=== PATIENT | female | born 1925 | race Caucasian/White ===

== ENCOUNTER 2016-12-14 20:46 | Inpatient (IN) | payer MEDICARE ==
[~2016-12-14] VITALS: Ht 165.1 cm; Wt 109.3 kg
[2016-12-14 21:30] VITALS: BP 163/75
[2016-12-14] MEDS ORDERED: MAG HYDROX/AL HYDROX/SIMETH 30 ML UDC PO PRN (22:00)
[2016-12-14] MEDS ORDERED: ACETAMINOPHEN 325 MG TABLET PO PRN (22:00)
[2016-12-14] MEDS ORDERED: MAGNESIUM HYDROXIDE 30 ML UDC PO PRN (22:00)
[2016-12-14] MEDS ORDERED: TEMAZEPAM 7.5 MG CAPSULE PO PRN (22:00)
[2016-12-14] MEDS ORDERED: clonazePAM 0.5 MG TABLET PO PRN (22:00)
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
[2016-12-15] MEDS ORDERED: Z GUARD REMEDY 2 OZ OINT TP PRN (04:00)
[2016-12-15 08:00] VITALS: BP 127/67
[2016-12-15 08:02] LABS: BASOPHILS % (AUTO) 0.4 % (0.0-2.0); EOSINOPHILS # (AUTO) 0.2 /CMM (0.0-0.7); EOSINOPHILS % (AUTO) 2.5 % (0.0-6.0); HEMATOCRIT 40 % (33-45); HEMOGLOBIN 13.3 g/dL (11.5-14.8); LYMPHOCYTES # (AUTO) 1.7 /CMM (0.8-4.8); MEAN CORPUSCULAR HEMOGLOBIN 33 PG (26.0-33.0); MEAN CORPUSCULAR HGB CONC 34 g/dl (31.0-36.0); MEAN CORPUSCULAR VOLUME 97 fL (82-100); MONOCYTES # (AUTO) 0.5 /CMM (0.1-1.30); MONOCYTES % (AUTO) 6.9 % (2.0-12.0); NEUTROPHILS # (AUTO) 4.3 /CMM (1.8-8.9); NEUTROPHILS % (AUTO) 65.2 % (43.0-81.0); PLATELET COUNT (AUTO) 220 /CMM (150-450); RED BLOOD CELL COUNT(AUTO) 4.09 MIL/uL (4.0-5.2); WHITE BLOOD COUNT (AUTO) 6.6 K/uL (4.3-11.0)
[2016-12-15 08:30] LABS: ALANINE AMINOTRANSFERASE 25 U/L (12-78); ALBUMIN 3.3 g/dL (3.4-5.0); ALKALINE PHOSPHATASE 104 U/L (46-116); ASPARTATE AMINOTRANSFERASE 31 U/L (15-37); BILIRUBIN,TOTAL 0.7 mg/dL (0.2-1.0); CALCIUM, SERUM 9.6 mg/dL (8.5-10.1); CARBON DIOXIDE 31 mmol/L (21-32); CHLORIDE 104 mmol/L (98-107); GLUCOSE 121 mg/dL (74-106); SODIUM SERUM 139 mmol/L (136-145); TOTAL PROTEIN, SERUM 8.1 g/dL (6.4-8.2); UREA NITROGEN, BLOOD 15 mg/dL (7-18)
[2016-12-15 08:33] LABS: CHOLESTEROL 169 mg/dL (<200); HDL CHOLESTEROL 65 mg/dL (40-60); LDL 78 mg/dL (0-99); TRIGLYCERIDES 104 mg/dL (30-150)
[2016-12-15] MEDS ORDERED: IBUP-1481 PO (09:05)
[2016-12-15] MEDS ORDERED: LEVO200T8 PO (09:05)
[2016-12-15] MEDS: QUETIAPINE FUMARATE 25 MG TABLET PO SCH ×2 (15:10→17:01)
--- NOTE | 2016-12-15 15:48 | NUR ---
Initial discharge plan: Pt. resides alone at [address] [place] [address] wlx wants to return. Per hold, pt is not able to return home as she is unable to take care of herself and she leave the house due to hearing voices. SW left a voicemail for pt's son, Oli De La Rosa [phone] and will follow up. NACHO will follow up with MD and will help form safe and proper discharge. Pt. may need placement.
[2016-12-15 16:00] VITALS: BP 142/76
[2016-12-15 20:00] VITALS: BP 152/73
[2016-12-15] MEDS: MIRTAZAPINE 15 MG TABLET PO SCH (22:00)
--- NOTE | 2016-12-15 22:58 | NUR ---
PATIENT REFUSED REMERON, EXPLAINED THE RISK AND BENEFITS, ATTEMPTED X 3, PATIENT STILL REFUSED
[2016-12-16 08:00] VITALS: BP 146/74
[2016-12-16] MEDS: QUETIAPINE FUMARATE 25 MG TABLET PO SCH ×2 (08:22→16:33)
[2016-12-16 15:58] VITALS: BP 114/59
--- NOTE | 2016-12-16 19:30 | NUR ---
GPS RN NOTE, RECEIVED PATIENT AWAKE AND IN BED, NO S/S OR COMPLAINTS OF PAIN AT THIS TIME. PATIENT IS DISPLAYING NO S/S OF APPARENT DISTRESS AT THIS TIME. PATIENT BREATHING IS UNLABORED WITH EQUAL RISE AND FALL OF THE CHEST. PATIENT IS TURKISH SPEAKING ONLY. PATIENT IS ALERT AND ORIENTED X 2 ON ROOM AIR WITH A SPO2 96%. PATIENT SELECTIVE WITH MEDICATION, ANXIOUS, COOPERATIVE, CONFUSED AT TIMES, AND NEEDS REORIENTATION. PATIENT DENIES SUICIDE AND HOMICIDAL IDEATIONS AT THIS TIME. PATIENT ASSISTED WITH TURNING AND REPOSITIONING Q2HR AND PRN FOR COMFORT AND CIRCULATION. PATIENT HAS NO NEEDS AT THIS TIME. PATIENT EDUCATED ON THE USE OF THE CALL LOWRY. PATIENT BED SIDE RAILS UP X2 FOR SAFETY, BED IS LOCKED AND LOW WILL CONTINUE TO MONITOR AND MAINTAIN SAFETY.
[2016-12-16] MEDS ORDERED: LOSA1TAB35 PO (19:47)
[2016-12-16 20:00] VITALS: BP 132/74
[2016-12-16] MEDS: MIRTAZAPINE 15 MG TABLET PO SCH (21:36)
--- NOTE | 2016-12-16 21:36 | NUR ---
GPS RN NOTE, PATIENT REFUSED TO TAKE REMERON 7.5MG PO HS. OFFERED MEDICATION THREE TIMES BUT STILL PATIENT REFUSED STATING, I DON'T NEED THAT MEDICATION THANK YOU ". EDUCATED THE PATIENT ON THE RISKS AND BENEFITS OF TAKING AND REFUSING AFOREMENTIONED MEDICATION. WILL CONTINUE TO MONITOR THIS PATIENT.
--- NOTE | 2016-12-16 22:00 | NUR ---
GPS RN NOTE, PATIENT NEEDS A MEDICATION RECONCILIATION. PAGED [facility] AND INFORMED DR FREEDOM GAMA OF MY FINDINGS. DR GAMA ORDERED TO CONTINUE LEVOTHYROXINE SODIUM 200MCG 1 TAB PO ACB, TO CONTINUE LOSARTAN 1 TAB PO QD, AND DISCONTINUE IBUPROFEN 400MG PO TID PRN. ALL ORDERS NOTED AND CARRIED OUT. HOME MEDICATION LIST FAXED TO PHARMACY TO BE CONTINUED. WILL CONTINUE TO MONITOR THIS PATIENT.
[2016-12-17 08:17] VITALS: BP 139/99
[2016-12-17] MEDS: QUETIAPINE FUMARATE 25 MG TABLET PO SCH ×4 (09:03→17:06)
[2016-12-17] MEDS: LOSARTAN POTASSIUM 50 MG TABLET PO SCH ×2 (11:00→12:09)
--- NOTE | 2016-12-17 13:46 | NUR ---
PATIENT IN THE DINING ROOM, A/O X2/3, GABONESE SPEAKER, SON NEXT TO THE PATIENT. PATIENT REFUSED 1100, AND 1300 MEDICATION, OFFERED X3 STILL REFUSED. CONTINUED MONITORING.
[2016-12-17 15:50] VITALS: BP 148/63
[2016-12-17 19:31] VITALS: BP 139/76
[2016-12-17] MEDS: MIRTAZAPINE 15 MG TABLET PO SCH (21:23)
[2016-12-18] MEDS: LEVOTHYROXINE SODIUM 100 MCG TABLET PO SCH (07:36)
[2016-12-18] MEDS: HYDROCHLOROTHIAZIDE 25 MG TABLET PO SCH ×2 (07:39→09:00)
[2016-12-18] MEDS: QUETIAPINE FUMARATE 25 MG TABLET PO SCH ×3 (07:39→17:00)
[2016-12-18] MEDS: LOSARTAN POTASSIUM 50 MG TABLET PO SCH ×2 (07:39→09:00)
[2016-12-18 08:00] VITALS: BP 160/78
--- NOTE | 2016-12-18 10:22 | NUR ---
SW left a voicemail for pt's son, Oli De La Rosa [phone] to find out whether pt. is able to return home or needs placement. will follow up
[2016-12-18 16:00] VITALS: BP 135/60
[2016-12-18 19:40] VITALS: BP 180/74
[2016-12-18 20:15] VITALS: BP 153/66
[2016-12-18] MEDS: MIRTAZAPINE 15 MG TABLET PO SCH (22:00)
[2016-12-19] MEDS: LEVOTHYROXINE SODIUM 100 MCG TABLET PO SCH (07:51)
[2016-12-19 08:00] VITALS: BP 151/81
[2016-12-19] MEDS: QUETIAPINE FUMARATE 25 MG TABLET PO SCH ×4 (09:00→16:48)
[2016-12-19] MEDS: LOSARTAN POTASSIUM 50 MG TABLET PO SCH (09:36)
[2016-12-19] MEDS: HYDROCHLOROTHIAZIDE 25 MG TABLET PO SCH (09:37)
[2016-12-19] MEDS ORDERED: DEXTROSE 50%-WATER 50 ML DISP.SYRIN IV PRN (11:30)
[2016-12-19] MEDS ORDERED: INSULIN REGULAR, HUMAN 100 UNIT/ML 3 ML VIAL SQ PRN (11:30)
[2016-12-19] MEDS: BLOOD SUGAR DIAGNOSTIC 1 EACH STRIP IN SCH ×3 (11:43→22:00)
[2016-12-19 16:00] VITALS: BP 166/64
--- NOTE | 2016-12-19 16:49 | NUR ---
PATIENT REFUSED 0900, 1300, AND 1700 SEROQUEL 25 MG PO SCHEDULED. OFFERED MEDICATION X3 EXPLAINED BENEFIT OF TAKING MEDICATION BUT STILL REFUSED. DR FOWLER NOTIFIED. CONTINUED MONITORING.
[2016-12-19 20:55] VITALS: BP 140/57
[2016-12-19] MEDS: MIRTAZAPINE 15 MG TABLET PO SCH (22:00)
--- NOTE | 2016-12-19 22:00 | NUR ---
GPS RN NOTES: PATIENT REFUSED TO HAVE ACCUCHECK DONE. PATIENT WILL RESPOND "NO! POLICIA" IN A LOUD MANNER. EXPLAINED TO PATIENT THE RISKS AND BENEFITS OF MEDICATION COMPLIANCE. WILL ENDORSE TO DAY SHIFT NURSE.
--- NOTE | 2016-12-20 | NUR ---
GPS RN: PATIENT IN THE CHAIR, HOLDING PAPERS ON HER HAND. OBSERVED TO BE IN SLEEPY MODE. ENCOURAGED PATIENT TO BE IN THE BED. FOR COMFORT AND SAFETY, PATIENT REFUSED. STATES SHE IS OKAY. WILL ENDORSE TO DAY SHIFT NURSE.
[2016-12-20] MEDS: LEVOTHYROXINE SODIUM 100 MCG TABLET PO SCH (07:30)
[2016-12-20 08:00] VITALS: BP 136/70
[2016-12-20] MEDS: BLOOD SUGAR DIAGNOSTIC 1 EACH STRIP IN SCH ×4 (08:14→21:18)
[2016-12-20] MEDS: LOSARTAN POTASSIUM 50 MG TABLET PO SCH (09:00)
[2016-12-20] MEDS: QUETIAPINE FUMARATE 25 MG TABLET PO SCH ×3 (09:00→17:00)
[2016-12-20] MEDS: HYDROCHLOROTHIAZIDE 25 MG TABLET PO SCH (09:00)
--- NOTE | 2016-12-20 10:32 | NUR ---
NACHO spoke with pt's son, Oli De La Rosa [phone] and he confirms that pt. is able to return home and live alone as she has caregivers during the day that help her. He requested to speak with the psychiatrist and social services coordinator relayed the message to Dr. Barillas
[2016-12-20 16:00] VITALS: BP 148/66
--- NOTE | 2016-12-20 17:30 | NUR ---
GPS/RN PATIENT REFUSED ACCUCHECK X3, EXPLAINED RISKS AND BENEFITS BUT CONTINUES TO REFUSE, WILL CONTINUE TO ENCOURAGE TO COMPLY WITH MD REGIMEN AND TREATMENTS.
--- NOTE | 2016-12-20 18:42 | NUR ---
GPS/RN PATIENT ADAMANTLY REFUSED ALL MEDICATION DURING SHIFT,EXPLAINED RISKS AND BENEFITS, DR BILL GR FILED.
[2016-12-20 20:10] VITALS: BP 149/81
[2016-12-20] MEDS: MIRTAZAPINE 15 MG TABLET PO SCH (21:18)
[2016-12-21] MEDS: LEVOTHYROXINE SODIUM 100 MCG TABLET PO SCH (07:30)
[2016-12-21] MEDS: BLOOD SUGAR DIAGNOSTIC 1 EACH STRIP IN SCH ×4 (08:26→21:07)
[2016-12-21 08:34] VITALS: BP 164/80
[2016-12-21] MEDS: QUETIAPINE FUMARATE 25 MG TABLET PO SCH ×3 (09:00→16:39)
[2016-12-21] MEDS: HYDROCHLOROTHIAZIDE 25 MG TABLET PO SCH (09:00)
[2016-12-21] MEDS: LOSARTAN POTASSIUM 50 MG TABLET PO SCH (09:00)
--- NOTE | 2016-12-21 13:00 | NUR ---
GPS/RN PATIENT REFUSED ACCUCHECK X3, EXPLAINED RISKS AND BENEFITS BUT CONTINUES TO REFUSE, WILL CONTINUE TO ENCOURAGE TO COMPLY WITH MD REGIMEN AND TREATMENTS.
[2016-12-21 16:39] VITALS: BP 139/75
--- NOTE | 2016-12-21 16:48 | NUR ---
GPS/RN PATIENT ADAMANTLY REFUSED ALL MEDICATION DURING SHIFT,EXPLAINED RISKS AND BENEFITS BUT CONTINUES TO REFUSE, WILL CONTINUE TO ENCOURAGE TO COMPLY WITH MD REGIMEN.
--- NOTE | 2016-12-21 17:00 | NUR ---
Assumed care, pt. was in her room, quiet, no sign of distress and no agitation noted. Will continue to monitor for safety.
--- NOTE | 2016-12-21 19:30 | NUR ---
GPS RN NOTE, RECEIVED PATIENT AWAKE AND IN BED, NO S/S OR COMPLAINTS OF PAIN AT THIS TIME. PATIENT IS DISPLAYING NO S/S OF APPARENT DISTRESS AT THIS TIME. PATIENT BREATHING IS UNLABORED WITH EQUAL RISE AND FALL OF THE CHEST. PATIENT IS SERBIAN SPEAKING ONLY. PATIENT IS ALERT AND ORIENTED X 2 ON ROOM AIR WITH A SPO2 95%. PATIENT SELECTIVE WITH MEDICATION, ANXIOUS, COOPERATIVE, CONFUSED AT TIMES, AND NEEDS REORIENTATION. PATIENT DENIES SUICIDE AND HOMICIDAL IDEATIONS AT THIS TIME. PATIENT ASSISTED WITH TURNING AND REPOSITIONING Q2HR AND PRN FOR COMFORT AND CIRCULATION. PATIENT HAS NO NEEDS AT THIS TIME. PATIENT EDUCATED ON THE USE OF THE CALL LOWRY. PATIENT BED SIDE RAILS UP X2 FOR SAFETY, BED IS LOCKED AND LOW WILL CONTINUE TO MONITOR AND MAINTAIN SAFETY.
[2016-12-21 20:00] VITALS: BP 141/77
--- NOTE | 2016-12-21 21:00 | NUR ---
GPS RN NOTE, PERFORMED ACCU CHECK WITH A BLOOD SUGAR RESULT OF 207. BUT PATIENT REFUSED INSULIN COVERAGE STATING, " I DON'T NEED INSULIN I'M GOOD WITH OUT IT". EDUCATED THE PATIENT ON THE RISKS AND BENEFITS OF TAKING AND REFUSING INSULIN. WILL CONTINUE TO MONITOR THIS PATIENT.
[2016-12-21] MEDS: MIRTAZAPINE 15 MG TABLET PO SCH (21:09)
--- NOTE | 2016-12-21 21:09 | NUR ---
GPS RN NOTE, PATIENT REFUSED TO TAKE REMERON 7.5MG PO HS. OFFERED MEDICATION THREE TIMES BUT STILL PATIENT REFUSED STATING, I DON'T NEED THAT MEDICATION NOW LEAVE ME ALONE". EDUCATED THE PATIENT ON THE RISKS AND BENEFITS OF TAKING AND REFUSING AFOREMENTIONED MEDICATION. WILL CONTINUE TO MONITOR THIS PATIENT.
[2016-12-22] MEDS: LEVOTHYROXINE SODIUM 100 MCG TABLET PO SCH (07:30)
[2016-12-22] MEDS: BLOOD SUGAR DIAGNOSTIC 1 EACH STRIP IN SCH ×4 (07:43→22:05)
[2016-12-22 08:00] VITALS: BP 159/75
[2016-12-22] MEDS: HYDROCHLOROTHIAZIDE 25 MG TABLET PO SCH (09:00)
[2016-12-22] MEDS: QUETIAPINE FUMARATE 25 MG TABLET PO SCH ×3 (09:00→17:18)
[2016-12-22] MEDS: LOSARTAN POTASSIUM 50 MG TABLET PO SCH (09:00)
--- NOTE | 2016-12-22 09:16 | NUR ---
PT. REFUSED TO TAKE PO DUE MEDS, OFFERED 3X, EXPLAINED ON THE IMPORTANCE AND THE RISK OF NOT TAKING THE MEDS AND STILL REFUSING AND SAID "NO QUIERO PASTELLYUKO".
--- NOTE | 2016-12-22 13:34 | NUR ---
PT. REFUSED TO TAKE DUE MED, EXPLAINED ON THE IMPORTANCE AND STILL REFUSING AND SAID "NO". WILL CONTINUE TO MONITOR.
[2016-12-22 16:00] VITALS: BP 131/64
[2016-12-22] MEDS: HALOPERIDOL LACTATE INJ 5 MG/ML VIAL IM SCH (17:00)
--- NOTE | 2016-12-22 17:22 | NUR ---
HALDOL IM NOT GIVEN, PT. TOOK THE SEROQUEL PO.
[2016-12-22 20:00] VITALS: BP 139/65
[2016-12-22] MEDS: MIRTAZAPINE 15 MG TABLET PO SCH (21:43)
[2016-12-23] MEDS: LEVOTHYROXINE SODIUM 100 MCG TABLET PO SCH ×2 (07:30→07:46)
[2016-12-23] MEDS: BLOOD SUGAR DIAGNOSTIC 1 EACH STRIP IN SCH ×4 (07:44→21:25)
[2016-12-23 08:00] VITALS: BP 135/78
[2016-12-23] MEDS: LOSARTAN POTASSIUM 50 MG TABLET PO SCH ×2 (09:00→09:07)
[2016-12-23] MEDS: QUETIAPINE FUMARATE 25 MG TABLET PO SCH ×4 (09:00→17:12)
[2016-12-23] MEDS: HALOPERIDOL LACTATE INJ 5 MG/ML VIAL IM SCH ×4 (09:00→17:00)
[2016-12-23] MEDS: HYDROCHLOROTHIAZIDE 25 MG TABLET PO SCH ×2 (09:00→09:06)
[2016-12-23 16:00] VITALS: BP 137/71
[2016-12-23 20:00] VITALS: BP 135/78
[2016-12-23] MEDS: MIRTAZAPINE 15 MG TABLET PO SCH (21:01)
--- NOTE | 2016-12-23 21:29 | NUR ---
GPS/RN NOTE: ACCUCHECK 158 MG/DL, 2 UNITS REG INSULIN SC ADMINISTERED WITH HS SNACKS.
[2016-12-24] MEDS: LEVOTHYROXINE SODIUM 100 MCG TABLET PO SCH (07:30)
[2016-12-24 08:32] VITALS: BP 173/71
[2016-12-24] MEDS: QUETIAPINE FUMARATE 25 MG TABLET PO SCH ×3 (08:57→16:57)
[2016-12-24] MEDS: HALOPERIDOL LACTATE INJ 5 MG/ML VIAL IM SCH ×3 (08:58→17:00)
[2016-12-24] MEDS: BLOOD SUGAR DIAGNOSTIC 1 EACH STRIP IN SCH ×4 (08:58→21:29)
[2016-12-24] MEDS: HYDROCHLOROTHIAZIDE 25 MG TABLET PO SCH (09:00)
[2016-12-24] MEDS: LOSARTAN POTASSIUM 50 MG TABLET PO SCH (09:00)
[2016-12-24 11:18] VITALS: BP 125/60
--- NOTE | 2016-12-24 12:19 | NUR ---
patient refused 0900, 1200 medication administered haldol im per refusal po medication. also refused coverage on insulin bs-164 mg/dl. md aware of, continued monitoring.
[2016-12-24 16:00] VITALS: BP 134/73
--- NOTE | 2016-12-24 17:30 | NUR ---
PATIENT TOOK SEROQUEK 25 MG PO PRESCRIBED, NO INJECTION GIVEN, CONTINUED MONITORING.
[2016-12-24 20:02] VITALS: BP 119/51
--- NOTE | 2016-12-24 20:27 | NUR ---
GPS/RN NOTE: LYING ON HER LEFT SIDE, SLEEPY, STABLE. NO APPARENT DISTRESS NOTED.
[2016-12-24] MEDS: MIRTAZAPINE 15 MG TABLET PO SCH (21:16)
--- NOTE | 2016-12-24 21:29 | NUR ---
GPS/RN NOTE: ACCUCHECK 132 MG/DL, NO INSULIN SLING SCALE DUE AT THIS TIME, OFFERED HS SNACKS.
[2016-12-25] MEDS: LEVOTHYROXINE SODIUM 100 MCG TABLET PO SCH ×2 (07:30→08:33)
[2016-12-25] MEDS: BLOOD SUGAR DIAGNOSTIC 1 EACH STRIP IN SCH ×4 (07:30→22:00)
--- NOTE | 2016-12-25 07:30 | NUR ---
GPS/RN PATIENT REFUSED ACCUCHECK X 3, EXPLAINED RISKS AND BENEFITS, WILL CONTINUE TO ENCOURAGE TO COMPLY WITH MD REGIMEN.
[2016-12-25 08:00] VITALS: BP 154/74
[2016-12-25] MEDS: LOSARTAN POTASSIUM 50 MG TABLET PO SCH ×2 (08:33→08:47)
[2016-12-25] MEDS: HYDROCHLOROTHIAZIDE 25 MG TABLET PO SCH (08:34)
[2016-12-25] MEDS: QUETIAPINE FUMARATE 25 MG TABLET PO SCH ×3 (08:34→16:21)
[2016-12-25] MEDS: HALOPERIDOL LACTATE INJ 5 MG/ML VIAL IM SCH ×3 (08:49→16:35)
[2016-12-25 16:00] VITALS: BP 145/56
--- NOTE | 2016-12-25 16:36 | NUR ---
GPS/RN ADMINISTERED SEROQUEL 25 MG ORDERED TID DURING SHIFT, HALDOL IM NOT GIVEN BECAUSE PATIENT AGREED TO TAKE MEDICATION PRESCRIBED.
--- NOTE | 2016-12-25 16:55 | NUR ---
GPS/RN PATIENT REFUSED ACCUCHECK X 3, EXPLAINED RISKS AND BENEFITS, WILL CONTINUE TO ENCOURAGE TO COMPLY WITH MD REGIMEN.
[2016-12-25 19:44] VITALS: BP 157/67
[2016-12-25] MEDS: MIRTAZAPINE 15 MG TABLET PO SCH (21:44)
[2016-12-25 22:00] VITALS: BP 130/69
--- NOTE | 2016-12-25 22:02 | NUR ---
GPS/RN AT 2200 PATIENT REFUSED ACCU CHECK X 3, EXPLAINED RISKS AND BENEFITS, WILL CONTINUE TO ENCOURAGE TO COMPLY WITH MD REGIMEN.
--- NOTE | 2016-12-26 06:12 | NUR ---
GPS RN NOTES SHOWER OFFERED IN DURING SHIFT , AND PT. REFUSED TO TAKE SHOWER , PT STATED I AM FEELING COLD , I WILL TAKE SHOWER IN DAY TIME , ENDORSE TO NEXT SHIFT FOR CONTINUITY OF CARE .
--- NOTE | 2016-12-26 06:28 | NUR ---
RN GPS NOTE PT .REMAINED IN STABLE CONDITION RESTING IN HER BED ,NO ACUTE DISTRESS NOTED ATTENDED ALL NEEDS AND ANTICIPATED ,WILL ENDORSE TO NEXT SHIFT FOR CONTINUITY OF CARE
[2016-12-26] MEDS: LEVOTHYROXINE SODIUM 100 MCG TABLET PO SCH (07:30)
[2016-12-26 08:00] VITALS: BP 132/67
[2016-12-26] MEDS: QUETIAPINE FUMARATE 25 MG TABLET PO SCH ×3 (08:12→16:25)
[2016-12-26] MEDS: LOSARTAN POTASSIUM 50 MG TABLET PO SCH (08:12)
[2016-12-26] MEDS: HYDROCHLOROTHIAZIDE 25 MG TABLET PO SCH (08:13)
[2016-12-26] MEDS: BLOOD SUGAR DIAGNOSTIC 1 EACH STRIP IN SCH ×2 (08:43→12:00)
[2016-12-26] MEDS: HALOPERIDOL LACTATE INJ 5 MG/ML VIAL IM SCH ×3 (09:00→16:33)
--- NOTE | 2016-12-26 12:00 | NUR ---
GPS/RN PATIENT REFUSED ACCU CHECK X 3, EXPLAINED RISKS AND BENEFITS, WILL CONTINUE TO ENCOURAGE TO COMPLY WITH MD REGIMEN
--- NOTE | 2016-12-26 14:05 | NUR ---
Discharge note: Pt. will discharge back home to [address] [place] [id number] with caregivers. Pt's son, Oli De La Rosa [phone] was notified and agreed with the discharge plan and agreed to sisal picker the patient after 4:00PM. Pt. is calm and cooperative, agrees with the discharge plan ,and is alert and oriented. Pt. denies suicidal/homicidal ideations. Pt. will follow up with her office messenger Dr. Sathish Tinajero and was referred to [facility] a [facility]. Pt. was also referred to [facility] [phone]. Discharge paperwork has been signed and discharge instructions will be provided to the son when picking up the patient.
[2016-12-26 16:00] VITALS: BP 125/59
--- NOTE | 2016-12-26 17:15 | NUR ---
GPS/RN ADMINISTERED SEROQUEL 25 MG ORDERED TID DURING SHIFT, HALDOL IM NOT GIVEN BECAUSE PATIENT AGREED TO TAKE MEDICATION PRESCRIBED
--- NOTE | 2016-12-26 17:20 | NUR ---
GPS/RN PATIENT CLEARED FOR DISCHARGE HOME BY DR KHAN AND DR PIPER. PRESCRIPTIONS INCLUDED WITH D/C PACKET, AND EXPLAINED TO PATIENT AND SON, VERBALIZED UNDERSTANDING. PATIENT REFUSED TO SIGN D/C PAPERWORK, COSIGNED BY 2 RN, PATIENT REFUSED TO SIGN BELONGING LIST, CO SIGNED BY 2 MANAGER BUSINESS BANKING. MONEY COUNTED BY MANAGER BUSINESS BANKING AND RN, WITH SON MICHELLE PRESENT AND HE SIGNED TO VERIFY VALUABLES AND MONEY WAS CORRECT. INFORMED SON THAT HOME HEALTH WAS ORDERED FOR PATIENT. PATIENT DENIES SI/HI/AH UPON DISCHARGE, PSYCHIATRIC TREATMENT PLANS MET, LEFT UNIT, STABLE CONDITION, NO DISTRESS, WITH MANAGER BUSINESS BANKING AND SON AT SIDE.
== END 2016-12-26 17:10 | disposition home health service (06) | DRG 885 ==
LOC: GPS 20:46
PROVIDERS: ADMIT Psychiatry & Neurology Psychiatry; ATTEND Internal Medicine
DX: F33.3 Major depressive disorder, recurrent, severe with psychotic symptoms (principal); E43 Unspecified severe protein-calorie malnutrition; R45.851 Suicidal ideations; Z68.41 Body mass index [BMI] 40.0-44.9, adult; F29 Unspecified psychosis not due to a substance or known physiological condition; F41.9 Anxiety disorder, unspecified; E03.9 Hypothyroidism, unspecified; E66.01 Morbid (severe) obesity due to excess calories; I10 Essential (primary) hypertension; Z91.19 Patient's noncompliance with other medical treatment and regimen; Z73.6 Limitation of activities due to disability; R73.9 Hyperglycemia, unspecified; F03.90 Unspecified dementia, unspecified severity, without behavioral disturbance, psychotic disturbance, mood disturbance, and anxiety
CPT/HCPCS: 36415; 80053-TC; 80061-TC; 82962-TC; 85025-TC; 87081-TC; 97001-TC; J1630; J1815; Z7610